=== PATIENT | female | born 1965 | race Caucasian/White ===

== ENCOUNTER 2017-10-01 06:49 | Day surgery (SDC) | payer OTHER ==
[2017-10-01] MEDS ORDERED: PROPOFOL 20 ML (09:14)
[2017-10-01] MEDS ORDERED: MIDAZOLAM 1 MG/ML 2 ML INJ (09:15)
[2017-10-01] MEDS ORDERED: LIDOCAINE 1% (MDV) 20 ML INJ (09:15)
[2017-10-01] MEDS ORDERED: FENTAnyl 50 MCG/ML VIAL (09:15)
[2017-10-01] MEDS ORDERED: CEFAZOLIN 1 GM INJ (09:29)
[2017-10-01] MEDS ORDERED: ONDANSETRON 4 MG INJ (09:39)
[2017-10-01] MEDS ORDERED: DEXAMETHASONE 4 MG/ML 1 ML INJ (09:40)
[2017-10-01] MEDS ORDERED: FAMOTIDINE 20 MG INJ (09:40)
[2017-10-01] MEDS ORDERED: DIPHENHYDRAMINE 50 MG INJ IV (10:00)
[2017-10-01] MEDS ORDERED: ONDANSETRON 4 MG INJ IV (10:00)
[2017-10-01] MEDS ORDERED: LABETALOL HCL 20MG INJ IV (10:00)
[2017-10-01] MEDS ORDERED: HALOPERIDOL 5 MG INJ IV (10:00)
[2017-10-01] MEDS ORDERED: hydrALAzine 20 MG INJ IV (10:00)
[2017-10-01] MEDS ORDERED: HYDROmorphONE (0.2 MG/ML) 10ML SYG IV (10:00)
[2017-10-01] MEDS: MEPERIDINE 25 MG INJ IV (10:30)
== END 2017-10-01 11:52 | disposition home or self-care (01) ==
LOC: SDS 06:49
DX: N95.0 Postmenopausal bleeding (principal); I10 Essential (primary) hypertension
CPT/HCPCS: 58120; 84703; 86850; 86900; 86901; 88305

== ENCOUNTER 2018-09-26 11:36 | Emergency (ER) | payer OTHER ==
[2018-09-26 14:07] LABS: URINE BLOOD (Dip) POC 2+ (NEGATIVE); URINE GLUCOSE (Dip) POC Negative (NEGATIVE); URINE KETONES (Dip) POC Negative (NEGATIVE); URINE LEUKOCYTE EST (Dip) POC 1+ (NEGATIVE); URINE NITRITE (Dip) POC Negative (NEGATIVE); URINE TOTAL PROTEIN POC Negative (NEGATIVE)
[2018-09-26] MEDS: KETOROLAC 30 MG INJ IM (14:19)
[2018-09-26] MEDS: HYDROCODONE/APAP (5/325) TAB PO (14:19)
== END 2018-09-26 14:51 | disposition home or self-care (01) ==
LOC: FTE 11:36
DX: I10 Essential (primary) hypertension (principal)
CPT/HCPCS: 81003; 81025; 96372; 99284-25